=== PATIENT | female | born 1945 | race Caucasian/White ===

== ENCOUNTER 2017-03-19 13:03 | Inpatient (IN) | payer BC ==
--- NOTE | ~2017-03-19 | DS ---
Discharge Summary [address] [id number] [place]. [address] NAME: VASILIY LAKE : 45 STATUS : DIS IN PAT#: [id number] AGE: 71 ADM/REG DATE : 03/19/17 MR#: [id number] REPORT SERV DATE: 03/22/17 DICTATED BY: DATE: REPORT STATUS : Draft TRANSCRIBED BY: MODL DATE: 03/21/17 ADMISSION DATE: 03/19/2017 DISCHARGE DATE: 03/21/2017 DISCHARGE DIAGNOSES: 1. Jaundice. 2. Fever. 3. Chronic obstructive pulmonary disease. 4. Hypertension. 5. Obesity with a BMI of 43.9. 6. Depression. DISCHARGE MEDICATIONS: Atenolol 25 mg p.o. daily, Neurontin 600 mg p.o. b.i.d., levothyroxine 50 mcg p.o. daily, Cozaar 100 mg p.o. daily, Prilosec 20 mg p.o. daily, Paxil 40 mg p.o. daily, aspirin 81 mg p.o. daily, Percocet 10/325 mg tablet one tablet p.o. t.i.d. p.r.n. for pain, and Phenergan 25 mg p.o. q.8 h. p.r.n. for nausea and vomiting. IMAGING: Hepatic echo, which demonstrated status post cholecystectomy, common bile duct that measures 10 mm and there is no intrahepatic bile duct dilation, heterogeneous liver suggests fatty infiltration. No ascites visualized. Echocardiogram was performed today, which demonstrates normal left ventricular size and systolic function with ejection fraction of 55%, mild left ventricular systolic dysfunction, normal right ventricular size and systolic function. No significant valvular disease was noted. HOSPITAL COURSE: 1. Jaundice. Jaundice has improved. She has been afebrile. The patient wanted to go home desperately today. She does not want us to continue workup for the cause of her jaundice. She has clinically improved and her labs have improved. Her liver enzymes are trending downward. AST initially was 71, today is 45; ALT of 96, down to 61 today; her alkaline phosphatase is 272, is down to 242; total bilirubin 3.9, and today is 1.9. Her OG was elevated at 1:80. Her hepatitis panel was negative. Her white blood cell count was normal at 9.7, procalcitonin was 0.54. Upon admission to the hospital, her pravastatin was held. This is possibly a drug-induced hepatitis versus nonalcoholic steatohepatitis versus autoimmune hepatitis. The patient does have a history of COPD, we performed an echocardiogram to rule out vascular congestion as mentioned above, the patient does not have right-sided heart failure. The patient needs close followup with her primary care provider who is Dr. Drew Rodriguez. 2. Fever, as mentioned above. The patient is afebrile. 3. Chronic obstructive pulmonary disease. The patient continues to smoke. Instructed, the patient that her disease will only progress if she does not quit. She understands and is not ready at this time. 4. Hypertension, blood pressure is 130s to 160s here in the hospital. This can be managed by her primary care provider on an outpatient basis. 5. Obesity. Weight control was discussed with the patient. 6. Depression, we will continue her Paxil. Currently the patient is hemodynamically stable with a blood pressure of 165/88, heart rate of 59, temp of 98.3, and Discharge Summary [address] [address] NAME: VASILIY LAKE : 45 STATUS : DIS IN PAT#: [id number] AGE: 71 ADM/REG DATE : 03/19/17 MR#: [id number] REPORT SERV DATE: 03/22/17 DICTATED BY: DATE: REPORT STATUS : Draft TRANSCRIBED BY: MODL DATE: 03/21/17 respirations of 20, on room air with an O2 saturation of 96%. Please send records to Dr. Drew Rodriguez, we will make an appointment with him prior to discharge if possible for one week or less. CLR/MODL Oscar Haynes NP / [id number] CC: MD GARRETT Dewitt FREDRICK S
--- NOTE | ~2017-03-19 | HP ---
History And Physical [place] [id number] [facility] [place]. [address] NAME: VASILIY DAILY : 45 STATUS : ADM IN [facility]#: [id number] AGE: 71 ADM/REG DATE : 03/19/17 MR#: [id number] REPORT SERV DATE: 03/20/17 DICTATED BY: EDUARDA HERNANDEZ DATE: 03/19/17 REPORT STATUS : Draft TRANSCRIBED BY: MODL DATE: 03/19/17 DATE OF ADMISSION: 03/19/2017 REASON FOR ADMISSION: Jaundice and abdominal pain. HISTORY: Ms. Daily is 71-year-old female with history of COPD, hypertension who is referred today with nausea, vomiting, abdominal pain, and fever. The patient says she has been having nonstop right upper quadrant pain over last 1 month. Of note, she states it waxes and wanes. Sometimes, it goes away the when it comes it persists. She denies any change in food although she has vomited occasionally. 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 She has subjective fever most days and has taken Tylenol three times a week for temperatures greater than 100 degrees. She finally came to the emergency room at [facility] at the advice of her physician where she was found to have liver enlargement and abnormal labs including leukocytosis and jaundice. Direct admit had been arranged as the patient actually refused to go. Things, however, got worse over the course of the weekend with increased abdominal distention, generalized weakness and continuation of fever, nausea, vomiting, and abdominal pain. The patient denies any headache. No visual changes. No confusion or dizziness. No focal neurological complaints. No cardiovascular complaints. No change in her baseline shortness of breath. No coughing or wheezing. No swelling of her legs. She does, however, have history of restless legs syndrome but no bleeding. Remainder of review of systems are negative. PAST MEDICAL HISTORY: As mentioned above. History of PVCs, history of cholecystectomy in the past. She has sleep apnea and takes CPAP at bedtime. MEDICATIONS: Include aspirin, atenolol, Lasix, Neurontin, Synthroid, Cozaar, Prilosec, Percocet, Paxil, Pravachol, Phenergan. ALLERGIES: TO SULFA, THEOPHYLLINE, LISINOPRIL, ALLOPURINOL, ERYTHROMYCIN. FAMILY HISTORY: Negative for liver disease. SOCIAL HISTORY: The patient is a smoker. She denies alcohol use. PHYSICAL EXAMINATION: VITAL SIGNS: On presentation, blood pressure 181/79, pulse 58, respirations 18, afebrile, saturating 98%. GENERAL EXAM: Awake, alert, and oriented x3. No apparent distress. HEENT: Pupils are equal and reactive to light. Extraocular movements are intact. No cranial nerve deficits. Moist mucous membranes in the oropharynx. She had mild scleral icterus. NECK: Revealed no jugular venous distention. However prominent V-wave with rapid wide ascent was noted. She had no carotid bruit, lymphadenopathy, or goiter. CARDIAC: Regular rate and rhythm. No murmurs, gallops, or rubs identified. LUNGS: Clear to auscultation bilaterally. Good excursion. History And Physical [address] [place]. [address] NAME: VASILIY DAILY : 45 STATUS : ADM IN [facility]#: [id number] AGE: 71 ADM/REG DATE : 03/19/17 MR#: [id number] REPORT SERV DATE: 03/20/17 DICTATED BY: EDUARDA HERNANDEZ DATE: 03/19/17 REPORT STATUS : Draft TRANSCRIBED BY: BONNIE DATE: 03/19/17 ABDOMEN: Obese, mildly distended but not really tympanic. She had an equivocal fluid wave and shifting dullness. I could not appreciate organomegaly. She did not have any stigmata of chronic liver disease. No caput medusae or spiders. No or striae. EXTREMITIES: No cyanosis, clubbing, or edema. Good pulses and capillary refill. Onychogryphosis was noted. She had some mild diminishment of sensation in her left foot and severe calluses of the left foot as well. SKIN: Warm and dry. PSYCHIATRIC: She is appropriate. LABORATORY EVALUATION: Sodium 140, potassium 3.5, chloride 103, bicarb 33, BUN 7, creatinine 0.8, glucose 141, total bilirubin 3.9 mostly direct, alkaline phosphatase was 272, ALT is 96, AST 71, ammonia 39. White count 9.7, H and H 13/40, platelets 246. ASSESSMENT/PLAN: 1. Painful jaundice with fever. It is paramount that we rule out cholangitis and biliary ductal dilatation. She is not febrile, does not have leukocytosis. She may have intermittent occlusion such as a ball and valve, retained stone in the ampulla. Ultrasound will be assessed to rule out a biliary ductal dilatation. However, we should maintain broad differential diagnosis including hepatitis acutely, hepatitis B, hepatitis C as well as cytomegalovirus serologies will be checked. The autoimmune causes will also cause fever and OG and mitochondrial antibody will also be investigated as well as sedimentation rate. The possibility also exists that patient has cirrhosis of unknown cause, and was just found incidentally and came for fever, nausea, vomitting or other causes. She is certainly at risk for nonalcoholic steatohepatitis given her obesity. Statin toxicity is a consideration as well. This will be discontinued. Iron stores will be investigated to screen for hemochromatosis and a BNP as well given the evidence of tricuspid regurgitation by her jugular veins leaving cardiogenic cirrhosis also on the differential. We will try to get the results of her recent CT pushed to our PAC system. Ultrasound will be done in the morning also ruling out ascites. She does not have exam worrisome at this time for spontaneous bacterial peritonitis. However, if the ascites is identified, a tap will be warranted. 2. Chronic obstructive pulmonary disease, not exacerbated. 3. Hypertension, uncontrolled. Continue her home medications but hydralazine will be offered p.r.n. WILMA/BONNIE Eduarda Hernandez M.D. / [id number] CC: Geena Jamison
[2017-03-19 13:45] LABS: BASOPHILS 0.2 %; BASOPHILS ABSOLUTE 0.02 10/3/uL (0.0-0.16); EOSINOPHILS 0.9 %; EOSINOPHILS ABSOLUTE 0.09 10/3/uL (0.0-0.53); ER CBC TAT 0 Hrs 05 Mins; HEMATOCRIT 40.5 % (36.0-48.0); HEMOGLOBIN 13.7 g/dL (12.0-16.0); IMMATURE GRANULOCYTES 0.3 %; IMMATURE GRANULOCYTES ABSOLUTE 0.03 10/3/uL (0.0-0.11); LYMPHOCYTES 25.4 %; LYMPHOCYTES ABSOLUTE 2.45 10/3/uL (0.67-4.30); MEAN CORPUS HGB CONC 33.8 g/dL (32.0-36.0); MEAN CORPUSCULAR HEMOGLOB 31.1 pg (26.0-34.0); MEAN PLATELET VOLUME 11.6 fL (9.2-13.0); MONOCYTES 10.8 %; MONOCYTES ABSOLUTE 1.04 10/3/uL (0.21-1.20); NEUTROPHILS 62.4 %; NEUTROPHILS ABSOLUTE 6.03 10/3/uL (2.02-8.40); PLATELET COUNT 246 10/3/uL (150-400); WHITE BLOOD CELLS 9.7 10/3/uL (4.5-10.5)
[2017-03-19 13:46] LABS: MANUAL DIFF NO %
[2017-03-19 13:52] LABS: ASCORBIC ACID (UR NOT ORDER) NEG (NEG); BILIRUBIN, URINE SMALL (NEG); ER URINALYSIS TAT 0 Hrs 15 Mins; KETONE, URINE NEGATIVE (NEG); LEUKOCYTE ESTERASE(NOT OR NEG (NEG); NITRITE (URINE) NEG (NEG); WBC (NOT ORDERED) (RFLEX) < 1 (0-5)
[2017-03-19 14:02] LABS: A/G RATIO 0.7 (0.7-1.9); ALKALINE PHOSPHATASE 272 U/L (45-117); BUN (BLOOD UREA NITROGEN) 7 MG/DL (6-23); CALCIUM, SERUM 8.9 MG/DL (8.5-10.4); CHLORIDE, SERUM 103 MMOL/L (96-112); CO2 (CARBON DIOXIDE) 33 MMOL/L (24-34); CREATININE 0.83 MG/DL (0.55-1.02); GFR AFRICAN AMERICAN 82 ML/MIN (>=60); GFR NON AFRICAN AMERICAN 71 ML/MIN (>=60); GLOBULIN 4.2 G/DL (2.5-4.1); GLUCOSE, SERUM 141 MG/DL (60-99); POTASSIUM, SERUM 3.5 MMOL/L (3.5-5.3); SGOT(AST) 71 U/L (5-40); SGPT(ALT) 96 U/L (5-65); SODIUM, SERUM 140 MMOL/L (135-148); TOTAL BILIRUBIN 4.6 MG/DL (0-1.2); TOTAL PROTEIN 7.2 G/DL (6.0-8.5)
[2017-03-19 16:43] LABS: DIRECT BILIRUBIN 2.9 MG/DL (0.0-0.4); TOTAL BILIRUBIN 3.9 MG/DL (0-1.2)
[2017-03-19] MEDS ORDERED: L40 PO (16:45)
[2017-03-19] MEDS ORDERED: ATEN25 PO (16:45)
[2017-03-19] MEDS ORDERED: HALF81 PO (16:45)
[2017-03-19] MEDS ORDERED: NEUR600 PO (16:45)
[2017-03-19] MEDS ORDERED: COZAAR100 MG PO (16:45)
[2017-03-19] MEDS ORDERED: PRAV10 PO (16:45)
[2017-03-19] MEDS ORDERED: PERCOCET 10/3251 TAB PO (16:46)
[2017-03-19] MEDS ORDERED: PAXIL40 MG PO (16:46)
[2017-03-19] MEDS ORDERED: PRILO PO (16:46)
[2017-03-19] MEDS ORDERED: LEVOTHYROXIN50 MCG PO (16:46)
[2017-03-19] MEDS ORDERED: PR25 PO (16:47)
[2017-03-19 20:31] LABS: INTERNATIONAL NORMAL RATI 1.1 UNITS (-); PARTIAL THROMBO TIME 29.2 SEC (22.5-37.2)
[2017-03-20 06:45] LABS: B NATRIURETIC PEPTIDE (BNP) 223.1 PG/ML (< 100.0)
[2017-03-20 06:53] LABS: % IRON SAT 28 % (20-50); A/G RATIO 0.7 (0.7-1.9); ALBUMIN 2.9 G/DL (3.5-5.0); BUN (BLOOD UREA NITROGEN) 8 MG/DL (6-23); CALCIUM, SERUM 9.7 MG/DL (8.5-10.4); CHLORIDE, SERUM 107 MMOL/L (96-112); CREATININE 0.66 MG/DL (0.55-1.02); FERRITIN 397 NG/ML (8-252); GAMMA GT 1577 U/L (5-85); GFR AFRICAN AMERICAN 103 ML/MIN (>=60); GFR NON AFRICAN AMERICAN 89 ML/MIN (>=60); GLOBULIN 4.2 G/DL (2.5-4.1); GLUCOSE, SERUM 132 MG/DL (60-99); IMMUNOGLOBULIN G 857 MG/DL (673-1464); IMMUNOGLOBULIN M 70 MG/DL (30-270); IRON BINDING CAPACITY 239 MCG/DL (225-410); IRON, SERUM 66 MCG/DL (35-150); POTASSIUM, SERUM 3.6 MMOL/L (3.5-5.3); SGOT(AST) 57 U/L (5-40); SGPT(ALT) 76 U/L (5-65); SODIUM, SERUM 143 MMOL/L (135-148); TOTAL PROTEIN 7.1 G/DL (6.0-8.5)
[2017-03-20 06:54] LABS: ALKALINE PHOSPHATASE 257 U/L (45-117); CO2 (CARBON DIOXIDE) 27 MMOL/L (24-34); TOTAL BILIRUBIN 2.6 MG/DL (0-1.2)
[2017-03-20 07:07] LABS: PROCALCITONIN 0.54 ng/mL (<0.5)
[2017-03-20 07:21] LABS: GLYCOHEMOGLOBIN (HbA1c) 6.2 % (4.7-6.1)
[2017-03-20 11:04] LABS: HEPATITIS B SURFACE ANTIGEN NON-REACTIVE (NON-REACT)
[2017-03-20 11:30] LABS: HEPATITIS C ANTIBODY NON-REACTIVE (NON-REACT)
[2017-03-20 11:31] LABS: HEPATITIS B CORE AB IGM NON-REACTIVE (NON-REAC)
[2017-03-20 11:34] LABS: HEP A ANTIBODY IGM NON-REACTIVE (NON-REACT)
[2017-03-20 14:02] LABS: ANA PATTERN HOMOGENEOUS
[2017-03-20 17:33] LABS: ACETAMINOPHEN LEVEL (TYLENOL) < 2.0 MCG/ML (10.0-20.0)
[2017-03-21 06:24] LABS: A/G RATIO 0.7 (0.7-1.9); ALKALINE PHOSPHATASE 242 U/L (45-117); BUN (BLOOD UREA NITROGEN) 12 MG/DL (6-23); CALCIUM, SERUM 9.4 MG/DL (8.5-10.4); CHLORIDE, SERUM 105 MMOL/L (96-112); CO2 (CARBON DIOXIDE) 27 MMOL/L (24-34); GFR AFRICAN AMERICAN 101 ML/MIN (>=60); GFR NON AFRICAN AMERICAN 87 ML/MIN (>=60); GLOBULIN 4.1 G/DL (2.5-4.1); GLUCOSE, SERUM 123 MG/DL (60-99); POTASSIUM, SERUM 3.7 MMOL/L (3.5-5.3); SGOT(AST) 45 U/L (5-40); SGPT(ALT) 61 U/L (5-65); SODIUM, SERUM 141 MMOL/L (135-148); TOTAL BILIRUBIN 1.9 MG/DL (0-1.2); TOTAL PROTEIN 7.1 G/DL (6.0-8.5)
== END 2017-03-21 17:30 | disposition home or self-care (01) | DRG 442 ==
LOC: ER 13:03 → 5SO 17:42
PROVIDERS: Hospitalist; Internal Medicine; Nurse Practitioner Acute Care
DX: R17 Unspecified jaundice (principal); Z68.41 Body mass index [BMI] 40.0-44.9, adult; J44.9 Chronic obstructive pulmonary disease, unspecified; R50.9 Fever, unspecified; I36.1 Nonrheumatic tricuspid (valve) insufficiency; E66.01 Morbid (severe) obesity due to excess calories; R10.9 Unspecified abdominal pain; I10 Essential (primary) hypertension; G47.33 Obstructive sleep apnea (adult) (pediatric); F17.210 Nicotine dependence, cigarettes, uncomplicated; F32.9 Major depressive disorder, single episode, unspecified; I49.3 Ventricular premature depolarization; Z90.49 Acquired absence of other specified parts of digestive tract; Z98.890 Other specified postprocedural states; Z79.82 Long term (current) use of aspirin; Z79.899 Other long term (current) drug therapy; Z88.2 Allergy status to sulfonamides; Z88.1 Allergy status to other antibiotic agents; Z88.8 Allergy status to other drugs, medicaments and biological substances
CPT/HCPCS: 76705; 80053; 80074; 81001; 82140; 82247; 82248; 82728; 82784; 82977; 83036; 83540; 83550; 83690; 83880; 84145; 85025; 85610; 85652; 85730; 86039; 86255; 99284; A9270-GY; C8929; G0378; G0480; J0360; Q9957